=== PATIENT | male | born 1980 | race Caucasian/White ===

== ENCOUNTER 2017-06-17 08:02 | Outpatient (CLI) | payer BC ==
--- NOTE | 2017-06-17 09:28 | RAD ---
CHEST TWO VIEWS: History: Cough. Comparison: 09-29-14 FINDINGS: Cardiac silhouette and pulmonary vasculature are unremarkable. Mediastinum is midline. There is no co nfluent airspace consolidation, pneumothorax or pleural fluid evident. IMPRESSION: No active cardiopulmonary abnormalities are demonstrated. POS: [facility]
== END 2017-06-17 08:03 | disposition home or self-care (01) ==
LOC: RAD-FRANK 08:02
PROVIDERS: ATTEND Nurse Practitioner Family
DX: R05 Cough (principal)
CPT/HCPCS: 71046